=== PATIENT | female | born 1965 | race Caucasian/White ===

== ENCOUNTER 2019-01-24 12:14 | Emergency (ER) | payer OTHER ==
[~2019-01-24] VITALS: Ht 157.5 cm; Wt 54.5 kg
[~2019-01-24 12:14] MED LIST: ALBU18HF INH; ALBU8.5H5 INH; AZIT500T5 PO; BUSP10TA PO; BUSP5TAB2 PO; DOCU-131 PO; FAMO20TA7 PO; FLUT100D INH; FLUT1BLS INH; FOLI-17 PO; IPRA3AMP30 NPPB; Lorazepam PO; NICO-486 TD; PRED20TA PO; PRED5TAB PO; THIA100T67 PO
--- NOTE | 2019-01-24 12:42 | NUR ---
PRODUCTION EDITOR: PT TO ED ROOM 19 FROM LOBBY AT THIS TIME
--- NOTE | 2019-01-24 12:49 | NUR ---
ER PA AT BEDSIDE. PT C/O INTERMITTANT MCMANUS FOR PAST 2 SENSITIVITY, BODY ACHS, SKIN FEELS SENSITIVE, BOTTOM OF FEET ARE SENSITIVE. DENIES N/V, TEMPERATURE. PT ASSESSMENT REV AND QUESTIONS ANSWERED.
[2019-01-24] MEDS ORDERED: ETOD400T PO (12:57)
[2019-01-24] MEDS ORDERED: PROCHLORPERAZINE 5 MG/ML, 2ML IVPush ONE (13:00)
[2019-01-24] MEDS ORDERED: SODIUM CHLORIDE FLUSH 10ML SYR IVF ONE (13:00)
[2019-01-24] MEDS ORDERED: KETOROLAC 30 MG/1 ML IVPush ONE (13:00)
[2019-01-24] MEDS ORDERED: DIPHENHYDRAMINE 50 MG/ML, 1ML IVPush ONE (13:00)
[2019-01-24 13:30] LABS: BASOPHILS # (AUTO) 0.07 x10^3/uL (0-0.1); BASOPHILS % (AUTO) 1 % (0-1); EOSINOPHILS # (AUTO) 0.15 x10^3/uL (0-0.4); EOSINOPHILS % (AUTO) 2 % (1-7); LYMPHOCYTES # (AUTO) 1.93 x10^3/uL (1-3.4); LYMPHOCYTES % (AUTO) 24 % (22-44); MD NO; MEAN CORPUSCULAR HEMOGLOBIN 29.1 pg (27.0-34.8); MEAN CORPUSCULAR HGB CONC 33.6 g/dL (32.4-35.8); MEAN CORPUSCULAR VOLUME 86.7 fL (80-100); MEAN PLATELET VOLUME 6.5 fL (7.4-10.4); MONOCYTES # (AUTO) 0.48 x10^3/uL (0.2-0.8); MONOCYTES % (AUTO) 6 % (2-9); NEUTROPHILS # (AUTO) 5.52 x10^3/uL (1.8-6.8); NEUTROPHILS % (AUTO) 68 % (42-75); PLATELET COUNT 320 x10^3/uL (130-400); RED BLOOD COUNT 4.83 x10^6/uL (3.82-5.3); RED CELL DISTRIBUTION WIDTH 13.3 % (9.6-15.2)
[2019-01-24 13:36] LABS: ANION GAP 10 mmol/L (5-15); CALCIUM 9.2 mg/dL (8.5-10.1); CHLORIDE 105 mmol/L (98-107); CREATININE 0.88 mg/dL (0.55-1.02)
[2019-01-24 13:37] LABS: ALANINE AMINOTRANSFERASE 26 U/L (12-78); ALBUMIN 4.2 g/dL (3.4-5.0)
[2019-01-24 13:38] LABS: MICROSCOPIC AUTO
[2019-01-24 13:39] LABS: ALKALINE PHOSPHATASE 65 U/L (45-117); BILIRUBIN,TOTAL 0.8 mg/dL (0.2-1.0); TOTAL PROTEIN 7.1 g/dL (6.4-8.2)
--- NOTE | 2019-01-24 13:46 | NUR ---
PT DECLINES MEDICATIONS AT THIS TIME. VERBALIZES, "CAN I JUST WAIT, THE PAIN IS NOT THAT BAD RIGHT NOW, AND I DON'T WANT TO BE SLEEPY"
[2019-01-24 13:52] LABS: CULTURE INDICATED? YES
[2019-01-24 14:22] VITALS: BP 116/56
--- NOTE | 2019-01-24 14:24 | NUR ---
Patient/Caregiver given discharge instructions and they have confirmed that they understand the instructions. Patient ambulatory with steady gait.
== END 2019-01-24 14:24 | disposition home or self-care (01) ==
LOC: ED 14:13
DX: R51 Headache (principal); R11.0 Nausea; Z87.891 Personal history of nicotine dependence; Z91.040 Latex allergy status
CPT/HCPCS: 36415; 70450; 80053; 80307; 81001; 83690; 85025; 87086; 96374; 99284; J1885